=== PATIENT | female | born 1965 | race Caucasian/White ===

== ENCOUNTER 2022-02-09 10:09 | Emergency (ER) | payer OTHER ==
[~2022-02-09] VITALS: Ht 160 cm; Wt 71.8 kg
[2022-02-09] MEDS ORDERED: OMEP20.6 PO (10:17)
[2022-02-09] MEDS ORDERED: CALCTAB41 PO (10:17)
[2022-02-09] MEDS ORDERED: MAGN400C PO (10:17)
[2022-02-09 12:10] VITALS: BP 127/65
== END 2022-02-09 12:12 | disposition home or self-care (01) ==
LOC: M ED 10:09
DX: S43.402A Unspecified sprain of left shoulder joint, initial encounter (principal); S63.92XA Sprain of unspecified part of left wrist and hand, initial encounter; V18.0XXA Pedal cycle driver injured in noncollision transport accident in nontraffic accident, initial encounter; K21.9 Gastro-esophageal reflux disease without esophagitis; Z91.030 Bee allergy status; Y92.410 Unspecified street and highway as the place of occurrence of the external cause; Y93.55 Activity, bike riding; Y99.9 Unspecified external cause status